=== PATIENT | male | born 2000 | race African-American/Black ===

== ENCOUNTER 2021-05-01 13:44 | Emergency (ER) | payer OTHER, MEDICAID, SELFPAY ==
--- NOTE | 2021-05-01 14:11 | DI.RAD.S_ITS ---
PROCEDURE: XR CHEST 1V INDICATIONS: chest pain TECHNIQUE: One view of the chest was acquired. COMPARISON: None. FINDINGS: Surgical changes and devices: None. Lungs and pleura: Lungs are clear. No pleural effusions or pneumothorax. Mediastinum: Mediastinal contours appear normal. Heart size is normal. Bones and chest wall: No suspicious bony lesions. Overlying soft tissues appear unremarkable. IMPRESSION: No acute cardiopulmonary process demonstrated radiographically. Dictated by: Perico Sheppard M.D. on 05/01/2021 at 14:38 Approved by: Perico Sheppard M.D. on 05/01/2021 at 14:45
[2021-05-01 14:13] VITALS: BP 144/96; PULSE 90; RESP 16; TEMP 36.1; O2SAT 100; BMI 26.4
[2021-05-01 14:24] LABS: Add Manual Diff / Slide Review NO; Basophils Absolute Auto 0 /uL (0-100); Basophils Percent Auto 0.5 % (0-2); Eosinophils Absolute Auto 0 /uL (0-450); Eosinophils Percent Auto 0.5 % (2-4); Hematocrit 44.3 % (41-53); Hemoglobin 13.8 g/dL (13.5-17.5); Lymphocytes Absolute Auto 1200 /uL (1100-4500); Lymphocytes Percent Auto 25.5 % (25-40); Mean Corpuscular HGB Conc 31.2 % (30-36); Mean Corpuscular Hemoglobin 21.4 PG (26-34); Mean Corpuscular Volume 68.7 fL (80-100); Monocytes Absolute Auto 400 /uL (0-900); Monocytes Percent Auto 8.5 % (3-14); Neutrophils Absolute Auto 3100 /uL (1500-7000); Platelet Count 244 X10^3/uL (150-400); Red Blood Cell Count 6.45 X10^6/uL (4.5-5.9); Red Cell Distribution Width 15.2 % (11.6-14.8); White Blood Cell Count 4.7 X10^3/uL (4.5-11.0)
--- NOTE | 2021-05-01 14:28 | ED_ITS ---
HPI - Chest Pain General Chief Complaint: Chest Pain Stated Complaint: Palpatations/chest discomfort x2 days Time Seen by Provider: 05/01/21 14:28 Source: patient Mode of arrival: Ambulatory Limitations: no limitations History of Present Illness HPI narrative: This is a 21-year-old male comes with complaint of palpitations and chest discomfort. Patient states this morning he felt sensation in his chest sort of substernal. Patient states he felt a little lightheaded. He after he ate some food. Symptoms lasted for an hour to 2. That was about 11 30 in the morning when he woke up when it was 1st noted. He denies any shortness of breath. He denies any radiation to his neck back or arm. He denies any diap horesis. He felt a little nauseated today ear, no vomiting, no abdominal pain, he has had normal urination, no swelling in his extremities. He had diarrhea for couple days but this has since resolved. Patient was told he had a heart murmur growing up as a child, he never was hospitalized did not have any workup that he is aware of. He does not take any daily medications. No prior surgeries. No other known medical issues. He is not allergic to any medications. Family history is negative for cardiac other than hypertension and diabetes, no other pulmonary embolic history. He vapes, occasional alcohol and THC but no other illicit. Dr. Sanchez is his primary care in [place] he had believes he may have had an EKG before. Related Data Allergies Allergy/AdvReac Type Severity Reaction Status Date / Time No Known Drug Allergies Allergy Verified 05/01/21 14:19 Review of Systems Review of Systems ROS Unobtainable: All systems reviewed & are unremarkable except as noted in HPI and below Patient History tobacco type: vaping alcohol intake frequency: 0-2 drinks per day Substance Use Type: marijuana Exam Narrative Exam Narrative: GENERAL: Alert and oriented x three, well-nourished male in mild distress. HEENT: Head normocephalic, atraumatic, EOMI, pupils reactive, face symmetric, moist mucous membranes NECK: Supple, full range of motion CARDIOVASCULAR: Regular rate and rhythm without murmurs, rubs or gallops. No JVD. RESPIRATORY: Breath sounds equal bilaterally, no wheezes rales or rhonchi. ABDOMEN: Soft, nontender. Normoactive bowel sounds all 4 quadrants. No guarding or rebound, rigidity, no mass : No CVA tenderness EXTREMITIES: Normal range of motion NEUROLOGICAL: Cranial nerves II through XII grossly intact. Moving all extremi ties SKIN: Warm, dry, no petechiae, no rashes or lesions. Initial Vital Signs Initial Vital Signs: Vital Signs Temperature 97.0 F L 05/01/21 14:13 Pulse Rate 90 05/01/21 14:13 Respiratory Rate 16 05/01/21 14:13 Blood Pressure 144/96 H 05/01/21 14:13 Pulse Oximetry 100 05/01/21 14:13 Course Orders Ordered: ED Orders 05/01/21 14:05 Complete Blood Count AUTO DIFF Stat Comprehensive Metabolic Panel Stat Lipase Stat Troponin & CK Cardiac Panel Stat 05/01/21 14:11 XR chest 1V Stat EKG-12 Lead Stat 05/01/21 16:30 Troponin I Stat Discontinued Medications Aspirin (Aspirin 81 Mg Chew Tab) 324 mg PO NOW ONE Stop: 05/01/21 14:45 Last Admin: 05/01/21 15:16 Dose: 324 mg Documented by: DOMINIC Consultations Consultation #1: Dr. Devlin, reviewed both the patient's EKGs. Feels that this is most likely report and does not feel patient warrants inpatient evaluation homeless everything else looks abnormal. Vital Signs Vital signs: Vital Signs - 8 hr 05/01/21 14:13 05/01/21 17:50 Temperature 97.0 F L 97.6 F Pulse Rate 90 67 Respiratory Rate 16 16 Blood Pressure 144/96 H 137/80 Pulse Oximetry 100 100 MDM - Chest Pain Lab Data Result diagrams: 05/01/21 14:05 05/01/21 14:05 Labs: Lab Results 05/01/21 05/01/21 05/01/21 Range/Units 14:05 14:05 16:30 WBC 4.7 (4.5-11.0) X10^3/uL RBC 6.45 H (4.5-5.9) X10^6/uL Hgb 13.8 (13.5-17.5) g/dL Hct 44.3 (41-53) % MCV 68.7 L (80-100) fL MCH 21.4 L (26-34) PG MCHC 31.2 (30-36) % RDW 15.2 H (11.6-14.8) % Plt Count 244 (150-400) X10^3/uL Neut % (Auto) 65.0 (50-75) % Lymph % (Auto) 25.5 (25-40) % [place] % (Auto) 8.5 (3-14) % Eos % (Auto) 0.5 L (2-4) % Baso % (Auto) 0.5 (0-2) % Neut # (Auto) 3100 (3879-5430) /uL Lymph # (Auto) 1200 (0865-7220) /uL [place] # (Auto) 400 (0-900) /uL Eos # (Auto) 0 (0-450) /uL Baso # (Auto) 0 (0-100) /uL RBC Morphology See below Hypochromasia 2+ H Microcytosis 1+ H Sodium 139 (137-145) mmol/L Potassium 4.1 (3.4-5.1) mmol/L Chloride 104 (98-107) mmol/L Carbon Dioxide 27 (22-32) mmol/L BUN 10 (9-20) mg/dL Creatinine 0.87 (0.66-1.25) mg/dL Estimated GFR > 60.0 (>60) mL/min BUN/Creatinine Ratio 11.5 (6-22) Glucose 90 (70-100) mg/dL Calcium 10.7 H (8.4-10.2) mg/dL Total Bilirubin 1.1 (0.2-1.3) mg/dL AST 34 (17-59) IU/L ALT 24 (<50) IU/L Alkaline Phosphatase 53 (38-126) U/L Total Creatine Kinase 146 (55-170) U/L CK-MB (CK-2) 0.71 (<2.37) ng/mL CK-MB (CK-2) Rel Index 0.5 L (1.5-5.0) % Troponin I < 0.012 < 0.012 (0.01-0.034) ng/mL Total Protein 8.5 H (6.3-8.2) g/dL Albumin 4.9 (3.5-5.0) g/dL Globulin 3.6 (1.7-4.1) g/dL Albumin/Globulin Ratio 1.4 (1.0-2.8) Lipase 47 (23-300) U/L Imaging Data Chest x-ray: Radiologist's Impression: [address] [id number] ReportSigned Patient: Ashlee Bergman TMR#: [id number]: [id number]:[id number]/Sex: 21 / MDate of Service: 05/01/21Loc: EDAccession Number: [id number] Procedure: XR chest 1V Ordering Provider: Princess Vernon D.O. PROCEDURE: XR CHEST 1V INDICATIONS: chest pain TECHNIQUE: One view of the chest was acquired. COMPARISON: None. FINDINGS: Surgical changes and devices: None. Lungs and pleura: Lungs are clear. No pleural effusions or pneumothorax. Mediastinum: Mediastinal contours appear normal. Heart size is normal. Bones and chest wall: No suspicious bony lesions. Overlying soft tissues appear unremarkable. IMPRESSION: No acute cardiopulmonary process demonstrated radiographically. Dictated by: Perico Sheppard M.D. on 05/01/2021 at 14:38 Approved by: Perico Sheppard M.D. on 05/01/2021 at 14:45 ECG Data Attestation: I personally reviewed and interpreted this ECG as follows: Prior ECG tracings: not available for review Interpretation: Sinus rhythm rate of 6r p are 154 QRS of 94 and QTC of 371. Patient does have a mm of ST-elevation in 2 3 and AVF reciprocal changes. Patient has T-waves in lateral leads. EKG 2. Shows rate of 50 7p are 154 QRS of 90 and QTC of 358. No acute depression. Patient does have elevation in 2 3 AVF. MDM Narrative Medical decision making narrative: Patient believes he may have had a prior EKG with his primary care provider no carbon were attempting to collect this. Dr. Sanchez is his primary care. Were unable to obtain patient has prior EKG. EKGs x2 appears similar, troponin is negative x2 with negative chest x-ray and otherwise normal labs. Patient is well-appearing and asymptomatic here in the department. He does not have any high risk factors, he does not have any high risk family history. Discussed and reviewed his EKGs and case with Dr. Devlin. Suspect early repolarization but outpatient workup would not be inappropriate. Patient does have primary care physician he can follow up with but was also given referral for Cardiology discussed concerns, reasons to return and concerning symptoms. Patient expresses his understanding and feels comfortable with this plan. Discharge Plan Departure Patient Disposition: Home Clinical Impression: Palpitations Instructions: DI for Atypical Chest Pain Activity Restrictions/Additional Instructions: I do recommend follow-up with your primary care or Cardiology for ECHO as well as further evaluation, which may include stress testing. Call for an appointment. Below is the referral for cardiology. I spoke with Dr. Devlin from [facility] today. You can follow-up with any circle cutting saw operator within this group. Your EKG today does have some changes but these may be your normal baseline. Please return for new or worsening symptoms, passing out, recurrent lightheadedness, new chest pain or pressure, shortness of breath, diaphoresis, persistent vomiting, new swelling in her extremities or other new or concerning symptoms. Referrals: Mateus Devlin MD [Physician] -
[2021-05-01 14:39] LABS: Alanine Aminotransferase 24 IU/L (<50); Albumin 4.9 g/dL (3.5-5.0); Albumin Globulin Ratio 1.4 (1.0-2.8); Alkaline Phosphatase 53 U/L (38-126); Aspartate Aminotransferase 34 IU/L (17-59); BUN Creatinine Ratio 11.5 (6-22); Bilirubin Total 1.1 mg/dL (0.2-1.3); Blood Urea Nitrogen 10 mg/dL (9-20); Calcium 10.7 mg/dL (8.4-10.2); Carbon Dioxide 27 mmol/L (22-32); Chloride 104 mmol/L (98-107); Creatine Kinase 146 U/L (55-170); Estimated Glomerular Filt Rate > 60.0 mL/min (>60); Globulin 3.6 g/dL (1.7-4.1); Glucose 90 mg/dL (70-100); HEMOLYSIS < 15 (0-50); Lipase 47 U/L (23-300); Potassium 4.1 mmol/L (3.4-5.1); Sodium 139 mmol/L (137-145); Total Protein 8.5 g/dL (6.3-8.2)
[2021-05-01 14:51] LABS: Troponin I < 0.012 ng/mL (0.01-0.034)
[2021-05-01 14:54] LABS: CKMB % Relative Index 0.5 % (1.5-5.0); Creatine Kinase MB 0.71 ng/mL (<2.37)
[2021-05-01 15:08] LABS: Hypochromasia 2+; Microcytosis 1+
[2021-05-01] MEDS: ASPIRIN 81 MG CHEW TAB 324 MG PO (15:16)
--- NOTE | 2021-05-01 15:20 | PC.NURSE ---
Pt sitting in chair, on cell phone. Pt c/o mid sternal chest pain x2 days 2-12/05, gets worse with standing long time, non radiating, no change with exertion.
[2021-05-01 17:00] LABS: Troponin I < 0.012 ng/mL (0.01-0.034)
[2021-05-01 17:50] VITALS: BP 137/80; PULSE 67; RESP 16; TEMP 36.4; O2SAT 100
== END 2021-05-01 18:00 | disposition home or self-care (01) ==
PROVIDERS: Emergency Provider Emergency Medicine
DX: R00.2 Palpitations (principal); R07.9 Chest pain, unspecified; R42 Dizziness and giddiness
CPT/HCPCS: 36415; 71045; 80053; 82550; 82553; 83690; 84484; 85025; 93005; 99283; 99284